=== PATIENT | female | born 1935 | race Caucasian/White ===

== ENCOUNTER 2020-02-26 16:14 | Inpatient (IN) | payer OTHER ==
[~2020-02-26] VITALS: Ht 160 cm; Wt 72.6 kg
[2020-02-26] MEDS ORDERED: NORVASC10 MG PO (17:57)
[2020-02-26] MEDS ORDERED: ELIQUIS2.5 M1 PO (17:57)
[2020-02-26] MEDS ORDERED: COREG12.5 M1 PO (17:58)
[2020-02-26] MEDS ORDERED: ZOLOFT50 MG PO (17:59)
[2020-02-26] MEDS ORDERED: VITAMIN D3100 MCG PO (17:59)
[2020-02-26] MEDS ORDERED: ZOCOR20 MG PO (18:00)
[2020-02-26] MEDS ORDERED: Ipratropium Brom3 ML INH (18:02)
[2020-02-26] MEDS ORDERED: LASIX20 MG PO (18:07)
[2020-02-26] MEDS ORDERED: PREDNISONE10 M1 PO (18:08)
[2020-02-26] MEDS ORDERED: ATIVAN0.5 MG PO (18:10)
[2020-02-26] MEDS ORDERED: NORCO 5-325 TA1 EACH PO (18:16)
[2020-02-26 19:08] VITALS: BP 156/88
[2020-02-26] MEDS ORDERED: MACROBID100 M1 PO (19:08)
[2020-02-26 20:00] VITALS: BP 156/88
[2020-02-26 23:24] VITALS: BP 156/88
[2020-02-27 07:09] LABS: BASO % 0.3 % (0.0-1.0); EOS # 0.1 10*3/uL (0.0-0.4); EOS % 0.8 % (1.0-4.0); HEMATOCRIT 32.5 % (37.0-47.0); LYMPH # 0.9 10*3/uL (1.3-4.4); LYMPH % 10.3 % (27.0-41.0); MEAN CELL VOLUME 93.4 fl (81.0-99.0); MEAN CORPUSCULAR HGB 27.3 pg (27.0-31.0); MEAN CORPUSCULAR HGB CONC 29.2 g/dl (33.0-37.0); MEAN PLATELET VOLUME 10.4 fl (9.6-12.3); MONO # 0.3 10*3/uL (0.1-1.0); MONO % 3.1 % (3.0-9.0); NEUT # 7.7 10*3/uL (2.3-7.9); NEUT % 84.4 % (47.0-73.0); PLATELET COUNT AUTOMATED 216 10*3/uL (130-400); RED BLOOD COUNT 3.48 10*6/uL (4.10-5.10); RED CELL DISTRI WIDTH 14.6 % (0-14.5); WHITE BLOOD COUNT 9.1 10*3/uL (4.8-10.8)
[2020-02-27 07:30] LABS: ALBUMIN 2.5 gm/dl (3.1-4.5); CREATININE 1.36 mg/dL (0.55-1.02); POTASSIUM 4.3 mmol/L (3.5-5.1); TOTAL PROTEIN 5.9 gm/dL (6.4-8.2)
[2020-02-27 07:37] LABS: THYROID STIM HORMONE (HS) 1.53 uIU/ml (0.358-4.75)
[2020-02-27 08:00] VITALS: BP 109/88
[2020-02-27 08:14] LABS: VITAMIN D, 25-HYDROXY 25.1 ng/mL (30-100)
[2020-02-27 10:00] VITALS: BP 142/80
[2020-02-27 20:00] VITALS: BP 108/71
[2020-02-28 07:54] VITALS: BP 134/58
[2020-02-28 10:10] LABS: CLARITY CLOUDY (CLEAR); COLOR YELLOW (YELLOW)
[2020-02-28 10:15] LABS: BILIRUBIN NEGATIVE (NEGATIVE); GLUCOSE NEGATIVE (NEGATIVE); KETONE NEGATIVE (NEGATIVE); SPECIFIC GRAVITY 1.005 (1.005-1.030)
[2020-02-28 10:16] LABS: BLOOD TRACE-INTACT (NEGATIVE); LEUKO ESTERASE 3+ (NEGATIVE); NITRITE NEGATIVE (NEGATIVE); UROBILINOGEN 0.2 E.U./dl (0.2-1.0)
[2020-02-28 10:18] LABS: RBC 21-30 rbc/hpf (0-2); WBC TNTC wbc/hpf (0-5)
[2020-02-28 10:19] LABS: BACTERIA 1+
[2020-02-28 20:00] VITALS: BP 152/62
[2020-02-29 07:52] VITALS: BP 111/72
[2020-02-29 08:23] VITALS: BP 138/62
[2020-02-29 20:00] VITALS: BP 126/76
[2020-03-01 08:00] VITALS: BP 144/62
[2020-03-01] MEDS ORDERED: RISPERIDONE0.5 MG PO (11:45)
[2020-03-01] MEDS ORDERED: CLONAZEPAM0.5 M2 PO (11:45)
[2020-03-01] MEDS ORDERED: MIRTAZAPINE15 M2 PO (11:45)
[2020-03-01 20:00] VITALS: BP 146/70
[2020-03-02 07:43] VITALS: BP 145/65
== END 2020-03-02 10:58 | disposition hospice, home (50) | DRG 885 ==
LOC: 3N 16:14
PROVIDERS: ADMIT Psychiatry & Neurology Psychiatry
DX: F33.2 Major depressive disorder, recurrent severe without psychotic features (principal); E43 Unspecified severe protein-calorie malnutrition; F23 Brief psychotic disorder; J96.11 Chronic respiratory failure with hypoxia; N30.00 Acute cystitis without hematuria; M19.90 Unspecified osteoarthritis, unspecified site; I11.0 Hypertensive heart disease with heart failure; E50.9 Vitamin A deficiency, unspecified; F41.9 Anxiety disorder, unspecified; E78.5 Hyperlipidemia, unspecified; E55.9 Vitamin D deficiency, unspecified; R23.4 Changes in skin texture; F39 Unspecified mood [affective] disorder; F63.81 Intermittent explosive disorder; I50.9 Heart failure, unspecified; J44.9 Chronic obstructive pulmonary disease, unspecified; Z88.0 Allergy status to penicillin; Z86.718 Personal history of other venous thrombosis and embolism; Z95.0 Presence of cardiac pacemaker; Z90.710 Acquired absence of both cervix and uterus; Z82.3 Family history of stroke; Z79.899 Other long term (current) drug therapy; Z87.891 Personal history of nicotine dependence; Z03.818 Encounter for observation for suspected exposure to other biological agents ruled out; Z68.28 Body mass index [BMI] 28.0-28.9, adult